=== PATIENT | male | born 1950 | race Caucasian/White ===

== ENCOUNTER 2025-03-16 13:30 | Outpatient (CLI) | payer OTHER | END 2025-03-16 13:31 | disposition home or self-care (01) | LOC: CSHWCC 13:30 | PROVIDERS: ATTEND Nurse Practitioner Family | DX: L89.013 Pressure ulcer of right elbow, stage 3 (principal); S51.001D Unspecified open wound of right elbow, subsequent encounter; E11.622 Type 2 diabetes mellitus with other skin ulcer; L98.499 Non-pressure chronic ulcer of skin of other sites with unspecified severity; Z72.0 Tobacco use | CPT/HCPCS: 11042; 99213; G0463 ==

== ENCOUNTER 2025-03-23 14:26 | Outpatient (CLI) | payer OTHER | END 2025-03-23 14:27 | disposition home or self-care (01) | LOC: CSHWCC 14:26 | PROVIDERS: ATTEND Nurse Practitioner Family | DX: L89.013 Pressure ulcer of right elbow, stage 3 (principal); S51.001D Unspecified open wound of right elbow, subsequent encounter; E11.622 Type 2 diabetes mellitus with other skin ulcer; L98.499 Non-pressure chronic ulcer of skin of other sites with unspecified severity; Z72.0 Tobacco use | CPT/HCPCS: 11042; 99212; G0463 ==

== ENCOUNTER 2025-03-30 13:34 | Outpatient (CLI) | payer OTHER | END 2025-03-30 13:35 | disposition home or self-care (01) | LOC: CSHWCC 13:34 | PROVIDERS: ATTEND Nurse Practitioner Family | DX: L89.013 Pressure ulcer of right elbow, stage 3 (principal); L98.499 Non-pressure chronic ulcer of skin of other sites with unspecified severity; E11.622 Type 2 diabetes mellitus with other skin ulcer; S51.001D Unspecified open wound of right elbow, subsequent encounter; Z72.0 Tobacco use | CPT/HCPCS: 11042 ==

== ENCOUNTER 2025-04-04 13:38 | Outpatient (CLI) | payer OTHER | END 2025-04-04 13:39 | disposition home or self-care (01) | LOC: CSHWCC 13:38 | PROVIDERS: ATTEND Nurse Practitioner Family | DX: S51.001D Unspecified open wound of right elbow, subsequent encounter (principal); E11.622 Type 2 diabetes mellitus with other skin ulcer; L89.013 Pressure ulcer of right elbow, stage 3; Z72.0 Tobacco use | CPT/HCPCS: 11042; 99212; G0463 ==

== ENCOUNTER 2025-04-11 13:29 | Outpatient (CLI) | payer OTHER | END 2025-04-11 13:30 | disposition home or self-care (01) | LOC: CSHWCC 13:29 | PROVIDERS: ATTEND Nurse Practitioner Family | DX: L89.013 Pressure ulcer of right elbow, stage 3 (principal); S51.001D Unspecified open wound of right elbow, subsequent encounter; E11.622 Type 2 diabetes mellitus with other skin ulcer; L98.499 Non-pressure chronic ulcer of skin of other sites with unspecified severity; Z72.0 Tobacco use | CPT/HCPCS: 11042 ==

== ENCOUNTER 2025-05-06 13:40 | Outpatient (CLI) | payer OTHER | END 2025-05-06 13:41 | disposition home or self-care (01) | LOC: CSHWCC 13:40 | PROVIDERS: ATTEND Nurse Practitioner Family | DX: L89.013 Pressure ulcer of right elbow, stage 3 (principal); S51.001D Unspecified open wound of right elbow, subsequent encounter; E11.622 Type 2 diabetes mellitus with other skin ulcer; L98.499 Non-pressure chronic ulcer of skin of other sites with unspecified severity; Z72.0 Tobacco use | CPT/HCPCS: 11042 ==

== ENCOUNTER 2025-05-17 13:54 | Outpatient (CLI) | payer OTHER | END 2025-05-17 13:55 | disposition home or self-care (01) | LOC: CSHWCC 13:54 | PROVIDERS: ATTEND Nurse Practitioner Family | DX: S51.001D Unspecified open wound of right elbow, subsequent encounter (principal); L89.013 Pressure ulcer of right elbow, stage 3; E11.622 Type 2 diabetes mellitus with other skin ulcer; L98.499 Non-pressure chronic ulcer of skin of other sites with unspecified severity; Z72.0 Tobacco use | CPT/HCPCS: 11042; 99406 ==